=== PATIENT | female | born 1980 | race Hispanic/Latino ===

== ENCOUNTER → 2022-10-03 | Outpatient (CLI) | payer MEDICAID | END | disposition home or self-care (01) | LOC: OIH 12:22 | PROVIDERS: ATTEND Internal Medicine | DX: S80.01XA Contusion of right knee, initial encounter (principal); M25.561 Pain in right knee; X58.XXXA Exposure to other specified factors, initial encounter; Y93.89 Activity, other specified; Y92.89 Other specified places as the place of occurrence of the external cause; Y99.8 Other external cause status | CPT/HCPCS: 73560 ==

== ENCOUNTER 2022-10-08 08:06 | Emergency (ER) | payer MEDICAID ==
[~2022-10-08] VITALS: Ht 154.9 cm; Wt 62.6 kg
[2022-10-08] MEDS ORDERED: KETOROLAC 30MG VIAL (30MG/ML) ONE (08:25)
[2022-10-08] MEDS ORDERED: KETOROLAC 30MG VIAL (30MG/ML) IM ONE (08:30)
[2022-10-08 08:35] VITALS: BP 127/83; PULSE 66; RESP 17; O2SAT 100
== END 2022-10-08 08:34 | disposition home or self-care (01) ==
LOC: EDH 08:06
DX: M25.561 Pain in right knee (principal); Z90.49 Acquired absence of other specified parts of digestive tract; W01.0XXA Fall on same level from slipping, tripping and stumbling without subsequent striking against object, initial encounter; Y93.89 Activity, other specified; Y92.89 Other specified places as the place of occurrence of the external cause; Y99.8 Other external cause status
CPT/HCPCS: 99283; 96372; J1885

== ENCOUNTER → 2022-10-26 | Outpatient (CLI) | payer MEDICAID | END | disposition home or self-care (01) | LOC: RAH 10:54 | PROVIDERS: ATTEND Internal Medicine | DX: S83.241A Other tear of medial meniscus, current injury, right knee, initial encounter (principal); M25.461 Effusion, right knee; M23.90 Unspecified internal derangement of unspecified knee; X58.XXXA Exposure to other specified factors, initial encounter; Y93.89 Activity, other specified; Y92.89 Other specified places as the place of occurrence of the external cause; Y99.8 Other external cause status | CPT/HCPCS: 73721 ==

== ENCOUNTER 2023-03-27 08:23 | Emergency (ER) | payer MEDICAID, OTHER ==
[~2023-03-27] VITALS: Ht 152.4 cm; Wt 55.8 kg
[2023-03-27] MEDS ORDERED: CYCLOBENZAPRINE HCL 10 MG TABLET PO ONE (09:30)
[2023-03-27] MEDS ORDERED: IBUPROFEN 400 MG TABLET PO ONE (09:30)
[2023-03-27] MEDS ORDERED: HYDROCODONE/ACETAMINOPHEN 5/325 MG TAB PO ONE (11:00)
[2023-03-27 11:33] LABS: BASOPHILS # (AUTO) 0.09 K/uL (0.00-0.20); BASOPHILS % (AUTO) 1.3 % (0.0-5.0); EOSINOPHILS # (AUTO) 0.18 K/uL (0.00-0.70); EOSINOPHILS % (AUTO) 2.6 % (0.0-8.0); HEMATOCRIT 39.4 % (36-48); IMMATURE GRANULOCYTE ABSOLUTE 0.06 K/uL (0-1); LYMPHOCYTES # (AUTO) 2.5 K/uL (1.0-4.8); LYMPHOCYTES % (AUTO) 36.1 % (21.0-51.0); MEAN CORPUSCULAR HEMOGLOBIN 32.2 pg (27.0-33.0); MEAN CORPUSCULAR HGB CONC 34.5 g/dL (32.0-36.0); MEAN CORPUSCULAR VOLUME 93.1 fL (79-99); MONOCYTES # (AUTO) 0.6 K/uL (0.1-1.0); NEUTROPHILS # (AUTO) 3.6 K/uL (1.8-7.7); NEUTROPHILS % (AUTO) 51.1 % (40.0-77.0); PLATELET COUNT (AUTO) 302 K/uL (130-400); RED BLOOD CELL COUNT(AUTO) 4.23 MIL/uL (4.00-5.50); RED CELL DISTRIBUTION WIDTH 11.7 % (11.0-15.5)
[2023-03-27 11:42] LABS: CREATININE 0.6 mg/dL (0.5-1.5); POTASSIUM 4.4 mmol/L (3.5-5.1)
[2023-03-27 11:44] LABS: INR <= 0.93 (0.85-1.15); PROTHROMBIN TIME 10.1 SEC (9.6-11.6)
[2023-03-27 11:45] LABS: PARTIAL THROMBOPLASTIN TIME 27.3 SEC (26.3-35.5)
[2023-03-27 11:46] LABS: ALBUMIN 3.6 g/dL (3.5-5.0); BILIRUBIN,TOTAL 0.2 mg/dL (0.2-1.0); TOTAL PROTEIN, SERUM 7.4 g/dL (6.0-8.3)
[2023-03-27 12:21] VITALS: BP 144/68; PULSE 74; RESP 18; O2SAT 100
[2023-03-27] MEDS ORDERED: IBUP-2076 PO (12:46)
[2023-03-27] MEDS ORDERED: CYCL10TA16 PO (12:46)
== END 2023-03-27 12:57 | disposition home or self-care (01) ==
LOC: EDH 08:23
DX: S89.81XA Other specified injuries of right lower leg, initial encounter (principal); S16.1XXA Strain of muscle, fascia and tendon at neck level, initial encounter; Z90.49 Acquired absence of other specified parts of digestive tract; Z79.899 Other long term (current) drug therapy; Z98.890 Other specified postprocedural states; W18.39XA Other fall on same level, initial encounter; Y93.89 Activity, other specified; Y92.89 Other specified places as the place of occurrence of the external cause; Y99.8 Other external cause status
CPT/HCPCS: 36415; 70450; 72040; 72125; 73562; 80053; 85025; 85610; 85730

== ENCOUNTER 2023-06-10 16:33 | Emergency (ER) | payer BC, OTHER ==
[~2023-06-10] VITALS: Ht 154.9 cm; Wt 65.8 kg
[~2023-06-10 16:33] MED LIST: CYCL10TA16 PO; IBUP-2076 PO
[2023-06-10 16:35] VITALS: BP 119/79; PULSE 88; RESP 16
[2023-06-10] MEDS ORDERED: TRAM-355 PO (17:02)
[2023-06-10] MEDS ORDERED: AMOX1TAB16 PO (17:02)
[2023-06-10] MEDS: KETOROLAC 60 MG VIAL (30MG/ML) IM ONE (17:05)
[2023-06-10] MEDS: AMOX/CLAV 875/125MG TAB PO ONE (17:06)
[2023-06-10] MEDS: HYDROCODONE/ACETAMINOPHEN 7.5/325 MG TAB PO ONE (17:06)
== END 2023-06-10 17:29 | disposition home or self-care (01) ==
LOC: EDH 16:33
DX: K04.7 Periapical abscess without sinus (principal); K02.9 Dental caries, unspecified
CPT/HCPCS: 99284; 96372; J1885

== ENCOUNTER 2023-06-17 02:56 | Emergency (ER) | payer BC ==
[~2023-06-17] VITALS: Ht 154.9 cm; Wt 65.8 kg
[~2023-06-17 02:56] MED LIST changes: +AMOX1TAB16 PO; +TRAM-355 PO
[2023-06-17 03:21] LABS: BASOPHILS # (AUTO) 0.05 K/uL (0.00-0.20); EOSINOPHILS # (AUTO) 0.19 K/uL (0.00-0.70); HEMATOCRIT 36.3 % (36-48); IMMATURE GRANULOCYTE ABSOLUTE 0.01 K/uL (0-1); LYMPHOCYTES % (AUTO) 42.3 % (21.0-51.0); MEAN CORPUSCULAR HEMOGLOBIN 31.3 pg (27.0-33.0); MEAN CORPUSCULAR HGB CONC 34.7 g/dL (32.0-36.0); MEAN CORPUSCULAR VOLUME 90.1 fL (79-99); MONOCYTES # (AUTO) 0.3 K/uL (0.1-1.0); MONOCYTES % (AUTO) 6.7 % (3.0-13.0); NEUTROPHILS # (AUTO) 2.2 K/uL (1.8-7.7); NEUTROPHILS % (AUTO) 45.8 % (40.0-77.0); PLATELET COUNT (AUTO) 285 K/uL (130-400); RED BLOOD CELL COUNT(AUTO) 4.03 MIL/uL (4.00-5.50); RED CELL DISTRIBUTION WIDTH 11.9 % (11.0-15.5); WHITE BLOOD COUNT (AUTO) 4.8 K/uL (4.8-10.8)
[2023-06-17 03:30] LABS: CARBON DIOXIDE 30 mmol/L (21-32); CHLORIDE 101 mmol/L (101-111); CREATININE 0.6 mg/dL (0.5-1.0); GLOMERULAR FILTR. RATE CALC 114 mL/min (>90); GLUCOSE,RANDOM 93 mg/dL (70-105); POTASSIUM 3.9 mmol/L (3.5-5.1); SODIUM SERUM 135 mmol/L (136-145); UREA NITROGEN, BLOOD 8 mg/dL (7-18)
[2023-06-17 03:34] LABS: ALANINE AMINOTRANSFERASE 35 U/L (12-78); ALCOHOL, BLOOD < 3 mg/dL (0-10); ASPARTATE AMINOTRANSFERASE 38 U/L (10-37); BILIRUBIN,TOTAL 0.2 mg/dL (0.2-1.0); TOTAL PROTEIN, SERUM 6.8 g/dL (6.0-8.3)
[2023-06-17 03:35] LABS: ACETAMINOPHEN < 1 mcg/mL (10-30); SALICYLATE < 2.8 mg/dL (2.8-20.0)
[2023-06-17 04:27] LABS: APPEARANCE,URINE CLEAR (CLEAR); BILIRUBIN,URINE NEGATIVE (NEGATIVE); COLOR,URINE COLORLESS (YELLOW); GLUCOSE, URINE (UA) NEGATIVE (NEGATIVE); KETONES,URINE NEGATIVE (NEGATIVE); LEUKOCYTE ESTERASE ,URINE NEGATIVE Leu/uL (NEGATIVE); NITRATE,URINE NEGATIVE (NEGATIVE); OCCULT BLOOD,URINE LARGE (NEGATIVE); PH,URINE 6.5 (5.0-8.0); PROTEIN,URINE NEGATIVE (NEGATIVE); UROBILINOGEN,URINE 0.2 mg/dL (0.2-1.0)
[2023-06-17 04:34] LABS: AMPHET/METH SCREEN,URINE NEGATIVE (NEGATIVE); BARBITURATE SCREEN, URINE NEGATIVE (NEGATIVE); BENZODIAZEPINES SCREEN,URINE POSITIVE (NEGATIVE); CANNABINOID SCREEN,URINE NEGATIVE (NEGATIVE); COCAINE SCREEN,URINE NEGATIVE (NEGATIVE); OPIATE SCREEN,URINE NEGATIVE (NEGATIVE); PHENCYCLIDINE SCREEN,URINE NEGATIVE (NEGATIVE)
[2023-06-17 04:39] LABS: ADD UA MICROSCOPIC YES
[2023-06-17 04:41] LABS: BACTERIA,URINE RARE /HPF (None Seen); SQUAMOUS EPITHELIAL CELL,UR RARE /HPF (0-2); WBC,URINE 0-1 /HPF (0-1)
[2023-06-17] MEDS: ACETAMINOPHEN 325 MG TAB PO ONE (06:34)
[2023-06-17 07:41] VITALS: BP 113/77; PULSE 74; RESP 16; O2SAT 99
== END 2023-06-17 07:47 | disposition home or self-care (01) ==
LOC: EDH 02:56
DX: G47.00 Insomnia, unspecified (principal); F41.9 Anxiety disorder, unspecified; F32.A Depression, unspecified; Z79.899 Other long term (current) drug therapy; Z90.49 Acquired absence of other specified parts of digestive tract; Z98.890 Other specified postprocedural states
CPT/HCPCS: 99283; 80053; 80305; 84703; 85025; 36415; 81001; G0481

== ENCOUNTER 2024-12-29 02:36 | Emergency (ER) | payer OTHER, BC ==
[~2024-12-29] VITALS: Ht 154.9 cm; Wt 54.4 kg
[~2024-12-29 02:36] MED LIST changes: -TRAM-355 PO; +TRAM-543 PO
[2024-12-29 02:57] VITALS: TEMP 98
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
--- NOTE | 2024-12-29 03:17 | EKG ---
[facility] Test Date: 2024-12-29 Test Time: 03:12:20 Pat Name: IDALIA NAVA Department: ED Room: Gender: F Welfare Eligibility Interviewer: [id number] : 1980 Requested By: SUSHIL SULLIVAN Order Number: [id number] Reading MD: Nelida Sheridan Measurements Intervals [place] Rate: 57 P: 66 SD: 152 QRS: 30 QRSD: 82 T: 28 QT: 470 QTc: 460 Interpretive Statements Sinus rhythm No previous ECG available for comparison Electronically Signed On 12-29-2024 12:11:30 CDT by Nelida Sheridan Please click the below link to view image of tracing.
[2024-12-29 03:21] LABS: IMMATURE GRANULOCYTE ABSOLUTE 0.06 K/uL (0-1); NUCLEATED RED BLOOD CELLS 0.0 % (0.0-0.19); PLATELET COUNT (AUTO) 300 K/uL (130-400); RED BLOOD CELL COUNT(AUTO) 3.45 MIL/uL (4.00-5.50); RED CELL DISTRIBUTION WIDTH 12.8 % (11.0-15.5); WHITE BLOOD COUNT (AUTO) 11.5 K/uL (4.8-10.8)
[2024-12-29 03:35] LABS: CREATININE 0.6 mg/dL (0.5-1.0); GLOMERULAR FILTR. RATE CALC 113.0 mL/min (>90); GLUCOSE,RANDOM 117.0 mg/dL (70-105); SODIUM SERUM 136.0 mmol/L (136-145); UREA NITROGEN, BLOOD 10.0 mg/dL (7-18)
[2024-12-29 03:37] LABS: INR <= 0.93 (0.85-1.15)
[2024-12-29 03:40] LABS: ASPARTATE AMINOTRANSFERASE 91.0 U/L (10-37); TOTAL PROTEIN, SERUM 6.1 g/dL (6.0-8.3)
[2024-12-29 03:45] LABS: WBC MORPHOLOGY CONSISTENT W/DIFF
[2024-12-29] MEDS ORDERED: IOHEXOL 350 MG/ML 100ML INFUS..BTL IV ONE (04:21)
[2024-12-29 05:01] VITALS: BP 123/78; PULSE 53; RESP 18; O2SAT 99
--- NOTE | 2024-12-29 05:10 | HMCIMG ---
EXAM: Non-contrast CT examination of the Brain CLINICAL HISTORY: Pain. TECHNIQUE: Thin collimated axial CT images of the brain were obtained, with sagittal and coronal reformatted images also submitted. A CT scan is done according to ALARA (As Low as Reasonably Achievable). CONTRAST USED: None. COMPARISON: None provided. FINDINGS: No acute intracranial abnormality is present. No acute cortical infarction, hemorrhage, mass, or mass effect. No hydrocephalus or abnormal extra-axial fluid collections. The posterior fossa is unremarkable. The skull base and calvarium are intact. The included portions of the paranasal sinuses and mastoid air cells are clear. Mild diffuse asymmetric soft tissue thickening in edema in the right parietal scalp. IMPRESSION: No acute intracranial abnormality is present. Mild diffuse asymmetric soft tissue thickening in edema in the right parietal scalp. /[place]
--- NOTE | 2024-12-29 05:14 | HMCIMG ---
EXAM: Post-contrast CT examination of the chest, abdomen, and pelvis CLINICAL HISTORY: Pain. TECHNIQUE: Postcontrast thin collimated axial CT images of the chest, abdomen, and pelvis were obtained, with sagittal and coronal reformatted images also submitted. A CT scan is done according to ALARA (As Low as Reasonably Achievable). COMPARISON: None provided. FINDINGS: Symmetrical dependent atelectasis in the bilateral posterior basal lungs. No focal consolidation, infiltrate, effusion, pneumothorax, or mass is evident. No pericardial effusion. The cardiac size is within normal limits. The thoracic aorta and pulmonary artery are normal in caliber. No mediastinal, axillary, or supraclavicular lymphadenopathy. No focal thyroid abnormality is evident. No focal abnormality within the liver, pancreas, spleen, adrenals, or kidneys. Status postcholecystectomy. Unremarkable urinary bladder. The uterus and ovaries are within normal limits. No obvious bowel wall thickening, dilatation, or obstruction. Unremarkable appendix. Grossly unremarkable abdominal vessels. No pathological lymphadenopathy in the abdomen or pelvis. No ascites or pneumoperitoneum. No acute bony abnormality is evident. Degenerative osseous changes. Severe degenerative disc disease with contiguous endplate sclerosis at L5-S1. IMPRESSION: No acute process in the chest, abdomen, or pelvis. /[place]
--- NOTE | 2024-12-29 05:21 | HMCIMG ---
EXAM: CT Cervical Spine Without IV Contrast CLINICAL HISTORY: Pain. TECHNIQUE: Thin collimated axial CT images of the cervical spine were obtained, with sagittal and coronal reformatted images also submitted. CT scan done according to ALARA (As Low As Reasonably Achievable). CONTRAST: None. COMPARISON: None provided. FINDINGS: No acute fracture. Straightening of the expected cervical lordosis reflects paraspinal muscle spasm. Moderate to severe spondylosis is evident by multilevel marginal osteophytes, contiguous endplate degenerative sclerosis, Schmorl's nodes, and facet arthropathy. Disc osteophyte complex bulge thecal sac indentation, neuroforaminal narrowing, and mild spinal canal stenosis at multiple levels, most pronounced at C4-C5 and C5-C6. The included lungs are clear. Subcentimeter neck lymph nodes bilaterally. IMPRESSIONS: No acute fracture. Straightening of the expected cervical lordosis reflects paraspinal muscle spasm. Moderate to severe spondylosis and degenerative disc disease at multiple levels, most pronounced at C4-C5 and C5-C6. /[place]
[2024-12-29] MEDS ORDERED: KETO10TA2 PO (05:43)
[2024-12-29] MEDS ORDERED: CYCL5TAB3 PO (05:43)
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
--- NOTE | 2024-12-29 06:27 | NUR ---
PATIENT AWAITING FAMILY TO COME BRING HER CLOTHES AND TAKE HER HOME
--- NOTE | 2024-12-29 06:30 | HMCIMG ---
EXAM: CR Chest, single view. CLINICAL HISTORY: Shortness of breath. COMPARISON: None. FINDINGS: The lungs show no infiltrate or other acute findings. No pleural effusion or pneumothorax. The cardiomediastinal silhouette is within normal limits. No acute osseous abnormality. IMPRESSION: No acute cardiopulmonary pathology is evident. /[place]
--- NOTE | 2024-12-29 07:27 | NUR ---
AWAITING EXTRACTIVE METALLURGIST BY SISTER
== END 2024-12-29 08:17 | disposition home or self-care (01) ==
LOC: EDH 02:36 → EDBD 02:36 → EDH 08:17
DX: R52 Pain, unspecified (principal); Z90.49 Acquired absence of other specified parts of digestive tract; Z53.29 Procedure and treatment not carried out because of patient's decision for other reasons; V49.9XXA Car occupant (driver) (passenger) injured in unspecified traffic accident, initial encounter; Y93.I9 Activity, other involving external motion; Y92.488 Other paved roadways as the place of occurrence of the external cause; Y99.8 Other external cause status
CPT/HCPCS: 99285; 70450; 96374; 96375; 71045; 80076; 84484; 80048; 84703; 85025; 85610; 85730; 83605; 36415; 72125; 71260; 74177; 93005; 84145; J1885; J2270; J2405; Q9967